=== PATIENT | female | born 1940 | race Caucasian/White ===

== ENCOUNTER 2017-06-06 15:57 | Emergency (ER) | payer BC, MEDICARE ==
[~2017-06-06] VITALS: Ht 162.6 cm; Wt 55.8 kg
--- NOTE | 2017-06-06 16:22 | Emergency Room Report ---
History of Present Illness General Chief Complaint: Lower Extremity Injury Source: Patient Present Illness HPI The patient is a 76-year-old female presents today with complaint of left ankle pain that began prior to arrival. Patient's states she slipped on gravel and fell twisting her left ankle. She states pain is 4/10 at rest and 7/10 with ambulation. She has not taken medication for the pain. Denies any head trauma , numbness, tingling, loss of sensation. Allergies: Coded Allergies: PENICILLINS (Verified Allergy, Unknown, 06/06/17) SULFA (SULFONAMIDE ANTIBIOTICS) (Verified Allergy, Unknown, 06/06/17) Patient History Reviewed Nursing Documentation: PMH: Agreed, PSxH: Agreed Nursing Documentation-PMH Hx Cardiac Problems: No - HYPOTHYROIDISM Review of Systems Musculoskeletal: Reports: joint pain All Other Systems: negative except mentioned in HPI Physical Exam Vital Signs Date Time Temp Pulse Resp B/P (MAP) Pulse Ox O2 Delivery O2 Flow Rate FiO2 06/06/17 16:02 98.6 97 20 155/75 100 Room Air Sp02 EP Interpretation: reviewed, normal General Appearance: no apparent distress, alert, GCS 15, non-toxic Head: normocephalic, atraumatic Eyes: bilateral eye normal inspection, bilateral eye PERRL ENT: hearing grossly normal, normal pharynx, no angioedema, normal voice Neck: full range of motion, supple/symm/no masses Respiratory: chest non-tender, lungs clear, normal breath sounds, speaking full sentences Cardiovascular #1: regular rate, rhythm, no edema Cardiovascular #2: 2+ carotid (R), 2+ carotid (L), 2+ radial (R), 2+ radial (L) , 2+ dorsalis pedis (R), 2+ dorsalis pedis (L) Gastrointestinal: normal bowel sounds, non tender, soft, non-distended, no guarding, no rebound Rectal: deferred Genitourinary: normal inspection, no CVA tenderness Musculoskeletal: back normal, gait/station normal, normal range of motion, non- tender, other - edema the lateral of the left ankle, decreased range of motion with dorsiflexion and plantar flexion at left ankle, TTP to lateral aspect of left ankle, NVI, pedal pulses present and equal, cap refill is brisk Neurologic: alert, oriented x3, responsive, motor strength/tone normal, sensory intact, speech normal Psychiatric: judgement/insight normal, memory normal, mood/affect normal, no suicidal/homicidal ideation Reflexes: 3+ bicep (R), 3+ bicep (L), 3+ tricep (R), 3+ tricep (L), 3+ knee (R) , 3+ knee (L) Skin: normal color, no rash, warm/dry, well hydrated Lymphatic: no adenopathy Medical Decision Making PA Attestation supervising physician is Dr. Garcia ER Course Patient is on an ankle fracture, joint space is maintained. Patient is placed in a short leg posterior splint with a stirrup, neurovascularly intact before and after splinting. The patient refusing pain medication in the ED in a.m. as a discharge prescription. Instructed to follow up with orthopedic surgery within the next 7 days for casting. The patient understands and is agreeable with plan. Other X-Ray Diagnostic Results Other X-Ray Diagnostic Results : X-Ray ordered: ankle # of Views/Limited Vs Complete: 3 View Indication: Pain EP Interpretation: Yes Interpretation: no dislocation, other - fracture of distal fibula, soft tissue swelling Impression: Other - fracture Electronically Signed by: Earnestine MUSE Scribe Text X-ray foot 3 views Fracture of the distal fibula, soft tissue swelling, no other fractures visualized Impression: Fracture of the distal fibula Reevaluation Time: 17:23 Last Vital Signs Date Time Temp Pulse Resp B/P (MAP) Pulse Ox O2 Delivery O2 Flow Rate FiO2 06/06/17 16:02 98.6 97 20 155/75 100 Room Air Status: improved Disposition: HOME, SELF-CARE Condition: Stable Earnestine Damon Jun 06, 2017 16:22
[2017-06-06 17:33] VITALS: BP 155/75
--- NOTE | 2017-06-07 12:29 | Diagnostic Imaging Report ---
Indication: PAIN Technique: 3 views left foot Comparison: none Findings: There is hammertoe deformity of the second through fifth digits. A somewhat limits visualization of the toes. Bones are osteoporotic. No definite acute fractures of the foot. There is a minimally displaced fracture of the distal tibial. No dislocations. The joint spaces are preserved. There is a small plantar spur. Impression: Positive for distal fibular fracture No acute foot fracture demonstrated. Other findings as noted
--- NOTE | 2017-06-07 12:30 | Diagnostic Imaging Report ---
Indication: PAIN Technique: 3 views of the left ankle Comparison: none Findings: There is a nondisplaced fracture of the distal fibula. There is overlying soft tissue swelling. Impression: Positive for nondisplaced distal fibular fracture This agrees with findings described by the ER physician in the electronic medical record
== END 2017-06-06 17:33 | disposition home or self-care (01) ==
LOC: EMR 17:23
DX: M25.572 Pain in left ankle and joints of left foot (principal); M81.0 Age-related osteoporosis without current pathological fracture; S82.492A Other fracture of shaft of left fibula, initial encounter for closed fracture; M20.42 Other hammer toe(s) (acquired), left foot; W01.0XXA Fall on same level from slipping, tripping and stumbling without subsequent striking against object, initial encounter; Y93.9 Activity, unspecified; Y92.9 Unspecified place or not applicable; Z88.2 Allergy status to sulfonamides; Z88.0 Allergy status to penicillin
CPT/HCPCS: 99283